=== PATIENT | male | born 1970 | race Caucasian/White ===

== ENCOUNTER 2017-11-01 00:24 | Emergency (ER) | payer OTHER ==
[~2017-11-01] VITALS: Ht 167.6 cm; Wt 58.7 kg
[2017-11-01] MEDS ORDERED: ULTRAM50 MG PO (01:09)
[2017-11-01 01:23] VITALS: BP 150/95
== END 2017-11-01 01:24 | disposition home or self-care (01) ==
LOC: EME 00:24
DX: S43.402A Unspecified sprain of left shoulder joint, initial encounter (principal); X58.XXXA Exposure to other specified factors, initial encounter
CPT/HCPCS: 73030; 99281; 99283